=== PATIENT | female | born 1985 | race Two or more races ===

== ENCOUNTER 2018-11-22 17:07 | Emergency (ER) | payer OTHER ==
[~2018-11-22] VITALS: Ht 157.5 cm; Wt 62.1 kg
[2018-11-22] MEDS ORDERED: PRENATABS RX T1 EACH (17:34)
== END 2018-11-22 20:50 | disposition home or self-care (01) ==
LOC: ER 17:07
DX: O20.0 Threatened abortion (principal)

== ENCOUNTER 2018-11-28 20:32 | Emergency (ER) | payer OTHER ==
[~2018-11-28] VITALS: Ht 157.5 cm; Wt 62.1 kg
[~2018-11-28 20:32] MED LIST: PRENATABS RX T1 EACH
== END 2018-11-29 03:20 | disposition home or self-care (01) ==
LOC: ER 20:32
DX: O20.0 Threatened abortion (principal)

== ENCOUNTER 2018-12-03 11:45 | Day surgery (SDC) | payer OTHER ==
[~2018-12-03] VITALS: Ht 157.5 cm; Wt 61.7 kg
== END 2018-12-03 22:05 | disposition home or self-care (01) ==
LOC: ER 11:45 → CIR.AMB 16:14
DX: O02.1 Missed abortion (principal); Z3A.01 Less than 8 weeks gestation of pregnancy